=== PATIENT | male | born 1940 | race Caucasian/White ===

== ENCOUNTER → 2016-10-25 13:14 | Outpatient (CLI) | payer MEDICARE, BC | END | disposition home or self-care (01) | LOC: D.RAD 07-26 08:00 → D.RT 07-26 08:00 → D.RAD 08-21 15:00 → D.RT 09-11 14:00 → D.RAD 09-11 15:00 → D.RT 10-16 14:00 → D.RAD 10-16 15:00 → D.RT 13:14 | DX: J45.909 Unspecified asthma, uncomplicated (principal) ==

== ENCOUNTER → 2018-01-23 19:41 | Outpatient (CLI) | payer MEDICARE, BC | END | disposition home or self-care (01) | LOC: D.SLEEP 19:41 | DX: G47.33 Obstructive sleep apnea (adult) (pediatric) (principal); Z01.812 Encounter for preprocedural laboratory examination ==

== ENCOUNTER → 2018-03-04 13:55 | Outpatient (CLI) | payer MEDICARE, BC | END | disposition home or self-care (01) | LOC: D.RT 13:55 | DX: J20.9 Acute bronchitis, unspecified (principal); J45.901 Unspecified asthma with (acute) exacerbation ==

== ENCOUNTER → 2018-03-20 12:33 | Outpatient (CLI) | payer MEDICARE, BC | END | disposition home or self-care (01) | LOC: D.LAB 12:33 | DX: R05 Cough (principal) ==